=== PATIENT | male | born 1965 | race Caucasian/White ===

== ENCOUNTER 2017-06-21 11:33 | Day surgery (SDC) | payer OTHER ==
[2017-06-20 13:12] VITALS: BMI 31.7
[~2017-06-21 11:33] MED LIST: BUPIVACAINE HCL/PF 0.5% (5MG/ML) 10 ML VIAL IJ ONE
[2017-06-21] MEDS ORDERED: BUPIVACAINE HCL/PF 0.5% (5MG/ML) 10 ML VIAL ONE ×2 (14:20→15:00)
[2017-06-21] MEDS ORDERED: MIDAZOLAM HCL 2 MG/2 ML SINGLE DOSE VIAL ONE (15:04)
[2017-06-21] MEDS ORDERED: PROPOFOL 20 ML ONE ×2 (15:04→15:20)
[2017-06-21] MEDS ORDERED: fentaNYL CITRATE 250 MCG/5 ML VIAL ONE (15:04)
[2017-06-21] MEDS ORDERED: ROCURONIUM BROMIDE 50 MG/5 ML VIAL ONE ×2 (15:06→15:45)
[2017-06-21] MEDS ORDERED: ceFAZolin SODIUM 1 GM VIAL ONE (15:07)
[2017-06-21] MEDS ORDERED: DEXAMETHASONE SOD PHOSPHATE 4 MG/1 ML VIAL ONE (15:07)
--- NOTE | 2017-06-21 15:14 | HP ---
History & Physical Update - History History: No Change - Physical Physical: No Change - Assessment Assessment: No Change - Plan Plan: No Change Currently as noted:: Robotic possible open umbilical hernia repair with mesh
[2017-06-21] MEDS ORDERED: ceFAZolin SODIUM 1 GM VIAL IVPB ONE (15:20)
[2017-06-21] MEDS ORDERED: ePHEDrine SULFATE 50 MG/1 ML AMPULE ONE (15:38)
[2017-06-21] MEDS ORDERED: GLYCOPYRROLATE 0.2 MG/1 ML VIAL ONE (16:33)
[2017-06-21] MEDS ORDERED: NEOSTIGMINE METHYLSULFATE 0.5 MG/ML - 10 ML MDV ONE (16:33)
[2017-06-21] MEDS ORDERED: BUPIVACAINE HCL/PF 0.5% (5MG/ML) 10 ML VIAL IJ ONE (16:34)
[2017-06-21] MEDS ORDERED: HYDROmorphone HCL CARPU-JECT 2 MG/1 ML DISP.SYRIN IVPB PRN (16:36)
[2017-06-21] MEDS ORDERED: ONDANSETRON 4 MG/2 ML VIAL IVPUSH PRN ×2 (16:36→16:45)
--- NOTE | 2017-06-21 16:36 | OP ---
Operative Note - Note: Operative Date: 06/21/17 Pre-Operative Diagnosis: Umbilical hernia Operation: Robotic umbilical hernia repair with mesh Implants: 12cm Symbotex mesh Post-Operative Diagnosis: Same as Pre-op Surgeon: Ruben Damon Technical Support Internship: Lamine Friedman ([place] Muriel) Anesthesia: General Specimens Removed: Hernia content Estimated Blood Loss (mls): 5 Operative Report Dictated: Yes
[2017-06-21] MEDS ORDERED: PATIENT'S OWN MEDICATION (NON-FORMULARY) (Tizanidine Hcl [Zanaflex] 2 MG) PO PRN (16:40)
[2017-06-21] MEDS ORDERED: IBUPROFEN 200 MG TABLET PO PRN (16:40)
[2017-06-21] MEDS ORDERED: D5-1/2NS+20 MEQ KCL - 20 MEQ/1,000 ML INFUS.BAG IV SCH (16:45)
[2017-06-21] MEDS ORDERED: PATIENT'S OWN MEDICATION (NON-FORMULARY) (Etanercept [Enbrel] 50 MG) SQ SCH (16:45)
[2017-06-21] MEDS ORDERED: oxyCODONE HCL 5 MG TABLET PO PRN (16:45)
[2017-06-21] MEDS ORDERED: LACTATED RINGERS SOLUTION 1,000 ML IV SCH (16:45)
[2017-06-21] MEDS ORDERED: PROMETHAZINE HCL 25 MG/1 ML VIAL IVPUSH PRN (16:45)
--- NOTE | 2017-06-21 17:03 | SURG ---
Surgery Frame Sample And Pattern Supervisor Note Frame Sample And Pattern Supervisor: Muriel Jenkins PA-C Date of Service: 06/21/17 Diagnosis: umbilical hernia Procedure: Robotic umbilical hernia repair with mesh I was present for the entirety of the operative procedure. For further detail, please refer to operative report. Visit type - Case Type Case Type: Scheduled Admission - Emergency Emergency Visit: No - New patient This patient is new to me today: Yes Date on this admission: 06/21/17
[2017-06-21 17:21] VITALS: TEMP 98.8
[2017-06-21] MEDS ORDERED: oxyCODONE HCL 5 MG TABLET ONE ×2 (18:20→20:00)
[2017-06-21 20:44] VITALS: BP 150/92; PULSE 90
[2017-06-22] MEDS ORDERED: HYDROCHLOROTHIAZIDE 25 MG TABLET (FP) PO SCH (10:00)
[2017-06-22] MEDS ORDERED: LOSARTAN POTASSIUM 100 MG TABLET PO SCH (10:00)
[2017-06-22] MEDS ORDERED: ESCITALOPRAM OXALATE 10 MG TABLET (FP) PO SCH (10:00)
[2017-06-22] MEDS ORDERED: GABAPENTIN 300 MG CAPSULE (FP) PO SCH (10:00)
[2017-06-22] MEDS ORDERED: PATIENT'S OWN MEDICATION (NON-FORMULARY) (Losartan/Hydrochlorothiazide [Losartan-Hctz 100- PO SCH (10:00)
[2017-06-22] MEDS ORDERED: MODAFINIL 200 MG PO SCH (10:00)
--- NOTE | 2017-06-22 11:14 | SPEC ---
DATE OF OPERATION: 06/21/2017 SURGEON: Ruben Damon MD ENTERTAINMENT PRODUCTION PROFESSIONAL: ANGELES Rojas and ANGELES Llamas PREOPERATIVE DIAGNOSIS: Umbilical hernia. POSTOPERATIVE DIAGNOSIS: Umbilical hernia. PROCEDURE: Robotic repair of umbilical hernia with mesh Mesh: 12-cm Symbotex mesh PATHOLOGY: Hernia content. ESTIMATED BLOOD LOSS: 5 mL DRAINS: None. ANESTHESIA: GET. REASON FOR PROCEDURE: This is a 51-year-old gentleman who presented to the office with pain and discomfort from his umbilicus. He was noted to have an umbilical hernia and was therefore consented for robotic, possible open repair of his umbilical hernia with mesh. He decided to proceed with the robotic approach after describing the different options. The risks and benefits of the procedure were explained. These included bleeding, infection, recurrence of hernia, NM, DVT, PE, injury to surrounding structures including, but not limited to, bowel, colon, bladder, stomach, vessel injury, nerve injury, and . Patient understood and signed informed consent. DESCRIPTION OF PROCEDURE: The patient was placed supine on the operating room table. The patient underwent general endotracheal intubation. The arms were tucked at the side and the patient was placed on the beanbag device. The abdomen was prepped and draped in the usual sterile fashion. A time-out was performed. An incision was made in the left upper quadrant and entrance into the abdominal cavity was obtained using an 8-mm robotic optical trocar under direct visualization with the laparoscope. Pneumoperitoneum was established. Subsequently, an 8-mm robotic trocar was placed in the left lateral abdominal wall and another 8-mm trocar placed in the left lower quadrant. The patient was placed in right lateral decubitus position. The robot was brought over the field and docked. Dissection was performed at the console. All adherent omentum and bowel was carefully freed from the anterior abdominal wall. Meticulous dissection was performed until this was accomplished. Hemostasis was identified. The hernia sac was then identified and carefully dissected. The fascial defect was closed with a No 1 Vloc suture. Once fully dissected, a Symbotex mesh of appropriate size was chosen, irrigated and inserted into the abdominal cavity. This was done after a 2-0 Prolene suture was placed in the central part of the mesh and a loose knot tied on the side that would be adherent to the abdominal wall. A stab wound was then made in the central part of the hernia defect and a suture passer used to grasp the Prolene suture. This allowed the mesh to be approximated to the abdominal wall over the hernia defect. A hemostat was then used to grasp the suture and again keep the mesh approximated to the abdominal wall. The hernia defect was noted to be fully covered by the mesh. The mesh was secured circumferentially using 2-0 V-Loc sutures as well as with absorbable tacks. Again the mesh was noted to be in good position and again hemostasis was identified. All needles were removed and the count was confirmed to be correct. The robotic instruments were removed. The robot was undocked and removed from the operative field. The patient was placed supine. Pneumoperitoneum was desufflated. All trocars were removed. All incision sites were irrigated and Marcaine was injected in all incision sites. Hemostasis was noted at all incision sites. All skin incisions were closed using 4-0 Biosyn. Sterile dressings were applied. The patient tolerated the procedure well and was transferred to the recovery room in stable condition. Claire [id number] ELEANOR
--- NOTE | 2017-06-23 17:15 | PATH ---
Surgical Pathology Report Patient Name: HOLLIS DEMARCO [facility]. Rec. #: [id number] /Age/Gender: 1965 (Age: 51) / M Account: [id number] Location: [facility] SURGICAL Taken: 06/21/2017 Received: 06/22/2017 Reported: 06/23/2017 Physicians: Ruben Damon M.D. Specimen(s) Received HERNIA CONTENTS Clinical History Umbilical hernia Final Diagnosis HERNIA CONTENTS, ROBOTIC LAPAROSCOPIC UMBILICAL HERNIA REPAIR: MESOTHELIAL LINED FIBROADIPOSE TISSUE CONSISTENT WITH HERNIA SAC AND CONTENTS. Electronically Signed Aimee Ochoa M.D. Gross Description Received in formalin labeled "hernia contents," is a 4.0 x 3.5 x 1.0 cm aggregate of cardenas-pink fragments of fibromembranous tissue with attached fat, consistent with hernia contents. Truss Builder sections are submitted in one cassette. 06/22/201706/22/2017
== END 2017-06-21 20:40 | disposition home or self-care (01) ==
LOC: JASU-SURG 11:33
PROVIDERS: ATTEND Surgery
PROC: 8E0W4CZ Robotic Assisted Procedure of Trunk Region, Percutaneous Endoscopic Approach (ICD-10-PCS; 2017-06-21)
PROC: 0WUF4JZ Supplement Abdominal Wall with Synthetic Substitute, Percutaneous Endoscopic Approach (ICD-10-PCS; principal; 2017-06-21 13:00)
DX: K42.9 Umbilical hernia without obstruction or gangrene (principal)
CPT/HCPCS: 49652; S2900; 88302-TC; 94760